=== PATIENT | female | born 1965 | race Caucasian/White ===

== ENCOUNTER 2018-06-06 14:42 | Day surgery (SDC) ==
[2018-06-06] MEDS ORDERED: ZOFRAN IV ONE (14:48)
[2018-06-06] MEDS ORDERED: MORPHINE IV ONE (14:48)
--- NOTE | 2018-06-06 15:12 | PROVIDER DOCUMENTATION ---
This chart was entered by Amber Barrera Scribe, acting as scribe for Yamila Felder CRNP. HPI-Musculoskeletal Pain/Inj - GENERAL Chief Complaint: Extremity Injury Stated Complaint: fall Time Seen by Provider: 06/06/18 14:47 Source: patient - HX OF PRESENT ILLNESS-MUSKULOSKELTAL Nature of Presenting Problem: 53 yof presents to the ed after stepping on a tool and twisting her left ankle. pt can not bear weight and has gross swelling of left ankle Quality of Pain: reports: aching Severity in ED: severe Onset/Duration: just prior to arrival Timing: still present, constant Modifying Factors: improves with: immobilization. worse with: movement, palpation Any recent injury?: Yes Locality of Occurance: Work Similar Symptoms Previously?: No Recently seen or treated by another doctor?: No Review of Systems - Adult - REVIEW OF SYSTEMS - ADULT Constitutional: denies: chills, fever Eyes: reports: no symptoms reported Ears, Nose, Mouth & Throat: reports: no symptoms reported Cardiovascular: denies: chest pain, palpitations Respiratory: denies: cough, shortness of breath, wheezing Gastrointestinal: denies: abdominal pain, diarrhea, nausea, vomiting Genitourinary: reports: no symptoms reported Musculoskeletal: reports: see HPI, joint pain (left ankle), joint swelling (left ankle). denies: back pain, neck pain Integumentary: reports: no symptoms reported Neurological: denies: dizziness/vertigo, headache/migraines Psychiatric: reports: no symptoms reported Endocrine: reports: no symptoms reported Hematologic/Lymphatic: reports: no symptoms reported Allergic/Immunologic: reports: no symptoms reported All Other Systems: Reviewed and Negative Past History - Adult - PAST MEDICAL HISTORY-ADULT Review of Records: reports: Old Records Reviewed, Nursing Assessment Review, Medications Reviewed, Social history reviewed & non-contributory. Major Childhood Illnesses: reports: denies history Cardiovascular: reports: denies history Respiratory: reports: denies history Gastrointestinal: reports: denies history Obstetrical/Gynecological: reports: denies history Genitourinary: reports: denies history Musculoskeletal: reports: denies history Neurological: reports: denies history Endocrine/Immune: reports: denies history Other Conditions: reports: denies history - PRIOR SURGERIES/PROCEDURES Surgical/Procedure History: reports: hysterectomy - IMMUNIZATION STATUS Childhood Immunizations: See Nurse Assessment Flu Vaccine: See Nurse Assessment - FAMILY HISTORY Family History: reviewed, not pertinent - SOCIAL HISTORY Smoking: non-smoker Substance Use: denies Living Situation: family Physical Exam-Injury Related - Physical Exam-Injury Related Initial Vital Signs Reviewed: Yes General Appearance: appears well, alert, no apparent distress Eyes: PERRL/EOMI, pink conjunctivae Head, Ears, Nose, Mouth & Throat: moist mucous membranes, normal ENT inspection Neck: non-tender, full range of motion, supple, normal inspection Respiratory: chest non-tender, lungs clear, normal breath sounds Cardiovascular: normal peripheral pulses, regular rate, rhythm Chest/Breast: deferred Abdominal Exam: normal bowel sounds, non tender, soft Female Genitalia/Pelvic Exam: deferred Rectal Exam: deferred Hemoccult Exam: deferred Lymphatic: no adenopathy Back Exam: normal inspection, no CVA tenderness, no vertebral tenderness Extremity: pelvis stable, deformity, swelling (left ankle), tenderness (left ankle) Integumentary: normal color, warm/dry, swelling (left ankle), tenderness (left ankle) Neurologic: grossly normal, no motor/sensory deficits Psych/Mental Status: normal mood/affect, normal thought content, normal thought process, oriented x 3 - Glascow Coma Score Best Eye Response ([place]): (4) open spontaneously Best Verbal Response ([place]): (5) oriented Best Motor Response ([place]): (6) obeys commands [place] Total: 15 Progress - PLAN OF CARE/RESULTS Progress/Plan/Lab Results: Vital Signs - 8 hr 06/06/18 14:54 06/06/18 15:42 06/06/18 15:50 Temperature 97.9 F Pulse Rate 89 Respiratory Rate 16 19 20 Blood Pressure 147/88 145/86 O2 Sat by Pulse Oximetry 91 L 93 L 100 06/06/18 16:00 06/06/18 16:02 06/06/18 16:10 Temperature Pulse Rate Respiratory Rate 21 19 31 H Blood Pressure 152/86 143/87 O2 Sat by Pulse Oximetry 100 100 100 06/06/18 16:11 Temperature Pulse Rate Respiratory Rate 15 Blood Pressure O2 Sat by Pulse Oximetry 100 Orders Category Date Time Status OCL Splint DIRECTED Care 06/06/18 15:29 Active ANKLE COMPLETE LEFT [RAD] Stat Exams 06/06/18 14:47 Completed ANKLE COMPLETE LEFT [RAD] Stat Exams 06/06/18 16:[address] EXT LOWER LEFT W/O CON [CT] Stat Exams 06/06/18 16:22 Ordered CBC WITH ELECTRONIC DIFF [HEME] Stat Lab 06/06/18 16:31 Uncollected COMPREHENSIVE METABOLIC PANEL [CHEM] Stat Lab 06/06/18 16:31 Uncollected 0.9% Sodium Chloride Inj [Ns] 1,000 ml Med 06/06/18 16:07 Active IV 999 mls/hr Hydromorphone [Dilaudid] Med 06/06/18 15:36 Discontinued 1 mg IV NOW ONE Lorazepam [Ativan] Med 06/06/18 15:36 Discontinued 1 mg IV NOW ONE Morphine Med 06/06/18 14:48 Discontinued 2 mg IV NOW ONE Ondansetron [Zofran] Med 06/06/18 14:48 Discontinued 4 mg IV NOW ONE EKG [EKG] Stat Ther 06/06/18 16:31 Ordered Discussed results and plan of care with patient. Patient agrees with plan and verbalizes understanding. - XRAY 1 XRAY: Left XRAY Study: Ankle Impression: See EMR Report (EXAM: ANKLE COMPLETE LEFT 06/06/2018 HISTORY: injury TECHNIQUE: Left ankle three views COMMENT: There are fractures of the distal shaft and more distal metaphyseal portion of the distal fibula, the medial malleolus and the posterior lip of the distal tibia. There is subluxation of the anterior portion of the plafond and anteriorly with respect to the talar dome. IMPRESSION: Fracture dislocation of the ankle as described. Electronically signed by Henri Eid 06/06/2018 3:09 PM 06/06/18 [id number] Interpreting Physician: Henri Eid MD Dictated Date/Time: 06/06/18 1507 cc: Yamila Felder; Paul Vasquez MD) XRAY Interpretation: See note 2 XRAY: Left XRAY Study: Ankle XRAY Interpretation: Dislocation reduced ([place]) - CONSULTS/PCP/HOSPITALIST Notification #1 *Consult/PCP/Hospitalist*: Dr. Scales Time Discussed: 15:23 Reason/Comments: Consult Consult Disposition: other (He will look at films and call back.) #2 Consult: Dr. Scales Time Discussed: 15:41 Reason/Comments: Consult Consult Disposition: Admit (Reduce and splint then get CT. Admit to Dr. Scales and make NPO after midnight.) Procedures - SPLINTING Left Lower Extremity Other Location: Left ankle Pre-Procedure Neurovascular Exam: Intact Splint Application (Hand-Made): Orthoglass, Posterior OCL Applied By: plasterer maintenance Assisted By: Mid-level Post Procedure Neurovascular Exam: Intact - DISLOCATION REDUCTION Left Ankle Other Location: left ankle Consent Form Signed?: Yes Time-Out Verification Completed?: Yes Pre-Procedure Neurovascular Exam: Intact Conscious Sedation: Yes (1 mg dilaudid and 1 mg ativan) Reduction Attempts: 1 Post Procedure Neurovascular Exam: Intact Post Reduction Film: Deformity Reduced, Fracture Present (Fracture was present before reduction) Post Reduction Splint Applied?: Yes Procedure Comment: Pt. tolerated procedure well Departure - Departure Date of Disposition Decision: 06/06/18 Time of Disposition Decision: 15:44 DIAGNOSIS: Ankle fracture, left Qualifiers: Encounter type: initial encounter Fracture type: closed Qualified Code(s): S82.892A - Other fracture of left lower leg, initial encounter for closed fracture Ankle dislocation Qualifiers: Encounter type: initial encounter Laterality: left Qualified Code(s): S93.05XA - Dislocation of left ankle joint, initial encounter Disposition: ADMITTED INPATIENT 09 Certified Medical Emergency: Emergent Condition: Stable Referrals and Follow-Ups: Paul Vasquez MD [Primary Care Provider] - - Critical Care Note This patient required my direct & personal management of CC.: No Attestation - Physician/ HILL Attestation Patient care was provided by Advanced Practice Provider:: Yes Advanced Practice Provider:: Yamila Felder Advanced Practice Provider documentation review:: The Mid-level provider documentation, treatment plan and medical decision making was reviewed by the physician who agrees with all treatment and medical decision making by the MLP. The physician spent face to face time with patient:: No Advanced Practice Provider documentation review:: Supervising physician onsite and consulted in the evaluation and care of this patient. The physician did not have a face to face encounter with the patient. This chart was documented by the indicated scribe, (Amber Barrera Scribe) and accurately reflects the services I performed and decisions made by me, Yamila Felder CRNP, as attested by the provider's signature.
[2018-06-06] MEDS ORDERED: DILAUDID IV ONE (15:36)
[2018-06-06] MEDS ORDERED: ATIVAN IV ONE (15:36)
[2018-06-06] MEDS ORDERED: NS 1,000 ML IV ONE ×2 (16:07→16:33)
--- NOTE | 2018-06-06 16:31 | Diag Imaging Result Doc PS360 ---
EXAM: ANKLE COMPLETE LEFT HISTORY: Post reduction TECHNIQUE: Left ankle two views COMPARISON: 3:00 PM FINDINGS: An external cast has been placed since the prior exam. There is improvement with satisfactory alignment to the distal tibia and fibula fractures. Electronically signed by Carlos Carlisle 06/06/2018 4:29 PM
[2018-06-06] MEDS ORDERED: ZOFRAN IV PRN (16:33)
[2018-06-06] MEDS ORDERED: PERCOCET-5 PO PRN ×2 (16:45→18:25)
--- NOTE | 2018-06-06 17:09 | ED EKG INTERP ---
This chart was entered by Amber Barrera Scribe, acting as scribe for Nadine Bourne MD. EKG Interpretation - EKG Time of EKG reading by physician:: 16:56 EKG Read and Signed by:: Nadine Bourne EKG Interpretation (*Must complete 3 of following elements*): Normal Rate: 91 Rhythm: nsr [place]: normal QRS: normal CO Interval: normal ST Wave: normal Attestation - Physician/ HILL Attestation Patient care was provided by Advanced Practice Provider:: Yes Advanced Practice Provider documentation review:: The Mid-level provider documentation, treatment plan and medical decision making was reviewed by the physician who agrees with all treatment and medical decision making by the MLP. The physician spent face to face time with patient:: No Advanced Practice Provider documentation review:: Supervising physician onsite and consulted in the evaluation and care of this patient. The physician did not have a face to face encounter with the patient. This chart was documented by the indicated scribe, (Amber Barrera Scribe) and accurately reflects the services I performed and decisions made by Steffen dillon Carisa L., MD, as attested by the provider's signature.
[2018-06-06 17:12] LABS: BASO# 0.01 X1000 (0.0-0.2); BASO% 0.1 % (0.0-0.8); EOS# 0.01 X1000 (0.0-0.7); EOS% 0.1 % (0.0-10.0); HEMATOCRIT 37.9 % (37.0-47.0); HEMOGLOBIN 12.2 g/dL (12.0-16.0); LYMPH# 1.22 X1000 (1.2-3.4); LYMPH% 11.2 % (20.5-51.1); MCH 30.5 PG (27-31); MCHC 32.2 g/dL (33-37); MCV 94.8 FL (81-99); MONO# 0.46 X1000 (0.11-0.59); MONO% 4.2 % (1.7-9.3); MPV 10.2 FL (7.4-10.4); NEUT# 9.19 X1000 (1.4-6.5); NEUT% 84.4 % (42.2-75.2); PLT 290 X1000 (130-400); RDW 11.6 % (11.5-14.5); WBC 10.89 X1000 (4.8-10.8)
--- NOTE | 2018-06-06 17:26 | Diag Imaging Result Doc PS360 ---
EXAM: CT EXT LOWER LEFT W/O CON 06/06/2018 HISTORY: Fx TECHNIQUE: This exam was performed using automated exposure control, adjustment of mA or kV according to patient size, and/or use of iterative reconstruction technique. COMMENT: There is a comminuted fracture of the distal fibula. There is a comminuted fracture of the distal tibia involving the medial malleolus as well as the posterior and central portion of the plafond. The talus and calcaneus appear to be intact as do the other visible tarsal bones. The ankle mortise is better aligned than it was at the time of the plain radiographs at 1501. IMPRESSION: Comminuted fractures of distal tibia and fibula. Electronically signed by Henri Eid 06/06/2018 5:24 PM
[2018-06-06 17:43] LABS: AGAP 13; ALB/GLOB RATIO 1.1; ALBUMIN 3.7 g/dL (3.5-5.0); ALKALINE PHOSPHATASE 95 U/L (32-104); BUN 12 mg/dL (8-22); CALCIUM 8.1 mg/dL (8.8-10.2); CHLORIDE 101 mmol/L (98-107); COSMO 280; CREATININE 0.7 mg/dL (0.5-0.9); ESTIMATED GFR > 60; GLUCOSE 109 mg/dL (70-104); GOT 20 U/L (10-30); GPT 11 U/L (10-36); POTASSIUM 3.9 mmol/L (3.5-5.1); SODIUM 140 mmol/L (136-145); TCO2 26 mmol/L (25-35); TOTAL BILIRUBIN < 0.15 mg/dL (0.20-1.00)
[2018-06-06] MEDS: MORPHINE IV PRN ×2 (18:37→21:51)
[2018-06-07] MEDS ORDERED: MORPHINE IV PRN
[2018-06-07] MEDS: MORPHINE IV PRN ×4 (01:02→13:02)
[2018-06-07] MEDS ORDERED: ROBINUL ONE (07:27)
[2018-06-07] MEDS ORDERED: XYLOCAINE-MPF 2% ONE (07:27)
[2018-06-07] MEDS ORDERED: FENTANYL ONE (07:28)
[2018-06-07] MEDS ORDERED: DIPRIVAN 1% ONE (07:29)
--- NOTE | 2018-06-07 07:48 | HISTORY AND PHYSICAL ---
HISTORY OF PRESENT ILLNESS: Ms Ulloa is a 53-year-old female who presented to the emergency department on 06/06/2018 for evaluation of this left ankle injury. She was stepping over some wood and then stepped on like a screwdriver and it shot her foot out from under her and she ended up landing and twisting the foot. She could not bear any weight so she came into the ER. They did x-rays, showed ankle fracture subluxation. She reduced in the ER, and then she was admitted to [facility] for surgical fixation today. Most of her pain is in the ankle. It is worse with any movement and it does feel better after the splint had been put on. PAST MEDICAL HISTORY: She denies any heart problems or lung problems PAST SURGICAL HISTORY: Hysterectomy. SOCIAL HISTORY: She denies any smoking. She lives with her . ALLERGIES: No known drug allergies. MEDICATIONS: Per the medical record. REVIEW OF SYSTEMS: Positive for this left ankle pain. All other systems are essentially negative. PHYSICAL EXAMINATION: GENERAL: A well-developed, well nourished female. She is in no acute distress. HEAD AND NECK: Normocephalic, atraumatic. RESPIRATIONS: Nonlabored breathing. CARDIOVASCULAR: Regular pulse. Abdomen: Nondistended. Extremities: Left lower extremity exam, she can move her toes in dorsiflexion, plantar flexion. She has good sensation to light touch to the toes and good capillary refill to the toes. Splint is clean, dry, and intact. She does not have any tender to palpation at the knee. RADIOGRAPHS: Initial radiographs were reviewed which shows a left what looks like tibial pilon variant with a lateral malleolus fracture with subluxation. Postreduction films show better alignment. CT scan shows a distal fibula fracture that is comminuted and a distal tibia fracture and medial malleolus fracture. ASSESSMENT: 1. Left tibial pilon fracture. 2. eft distal fibula fracture. PLAN: I discussed with Ms. Ulloa today about surgical intervention. I went over with her the procedure, risks, benefits, and potential complications. Risks include, but are not limited to infection, wound healing problems, damage to nerves, arteries, veins, numbness, malunion, nonunion, hardware related issues, continued pain, DVT, and anesthesia related risks. After discussing these with the patient, she expressed understanding wished to proceed. This will be a left tibial pilon open reduction and internal fixation and lateral malleolus open reduction and internal fixation with possible syndesmosis fixation. She is n.p.o. now. We will plan on doing this today. She will be nonweightbearing afterwards. cc: Jm Scales MD
[2018-06-07] MEDS ORDERED: XYLOCAINE 1% ONE (07:55)
[2018-06-07] MEDS ORDERED: MARCAINE 0.25% PF ONE (07:55)
[2018-06-07] MEDS ORDERED: PEPCID ONE (07:56)
[2018-06-07] MEDS ORDERED: KEFZOL 2 GM/D5W 4 GM/100 ML IVPB ONE (08:06)
[2018-06-07] MEDS ORDERED: REGLAN ONE (08:20)
[2018-06-07] MEDS ORDERED: DECADRON ONE (08:20)
[2018-06-07] MEDS ORDERED: PHENERGAN ONE (08:31)
[2018-06-07] MEDS ORDERED: MORPHINE ONE (08:45)
[2018-06-07] MEDS ORDERED: SODIUM CHLORIDE 0.9% 10 ML ONE (08:45)
[2018-06-07] MEDS ORDERED: ZOFRAN ONE (08:57)
[2018-06-07 12:36] VITALS: BP 145/71
--- NOTE | 2018-06-07 13:28 | OPERATIVE NOTE ---
PROCEDURE DATE: 06/07/2018 PREOPERATIVE DIAGNOSES: 1. Right medial malleolus fracture. 2. Right lateral malleolus fracture, comminuted. 3. Right tibial pilon fracture. POSTOPERATIVE DIAGNOSES: 1. Right medial malleolus fracture. 2. Right lateral malleolus fracture, comminuted. 3. Right tibial pilon fracture. PROCEDURES: 1. Right open reduction internal fixation lateral malleolus. 2. Right open reduction internal fixation medial malleolus. 3. Right open reduction internal fixation tibial pilon fracture. SURGEON: Dr. Jm Scales. FOOD SERVICE ASSOCIATE: None. ANESTHESIA: General with LMA. TOURNIQUET TIME: 130 minutes. IMPLANTS: 1. Midline distal fibular plate locking plate and screws. 2. Midline 1/3 tubular plate and screws. 3. Biomet 4 cannulated screws x4. DISPOSITION: To PACU, hemodynamically stable. INDICATIONS FOR PROCEDURE: Ms. Ulloa is a 53-year-old female who fractured her ankle yesterday. She was admitted to the hospital for surgery today. I discussed with her and her family about operative intervention. She expressed understanding and wished to proceed. DESCRIPTION OF PROCEDURE: Ms. Ulloa was identified in the preoperative holding area. The right foot was marked as correct surgical site. She was then wheeled to the operating room, placed supine on the operating table. All bony prominences well padded. She was induced under general anesthesia. LMA was placed. Tourniquet placed to the right thigh. Right lower extremity then prepped chlorhexidine, gluconate scrub and then ChloraPrep, and draped in normal sterile fashion. Surgical pause was performed. We identified the correct patient, correct side, and the correct procedure. Preop antibiotics were given. Esmarch was used to exsanguinate the right lower extremity and tourniquet was inflated to 300 mmHg. Total tourniquet time was 130 minutes. I started with an incision over the distal fibula. Dissection was carried down. We identified superficial peroneal nerve and protected it throughout the entire case. The fibula was really comminuted. The shaft portion was splintered where it started and there was really almost a big butterfly fragment anteriorly. In the distal fragment, the more anterior aspect was comminuted about the anterior syndesmosis. Her bone quality was not great for using even a bony reduction clamp. Given the amount of comminution, I felt like we could not get a lag screw in so I ended up pulling her fibula out to length. I used a bony reduction clamp on the distal fibular fragment and then pinned that piece to the talus. That actually got my length back. I was then able to get a distal fibular locking plate on, secured it right above the proximal fracture line and then I came down and secured it to the distal fragment with some locking and nonlocking screws. That actually got our length back. I then put 3 more screws proximally to hold everything together and then I put 1 screw right in the middle to grab that butterfly fragment and pull it in and it actually pulled in really well. Fluoroscopic imaging showed it looked like we got our fibular length back. That actually looked really good. I then used some 0 Vicryl in that anterior comminuted portion at the syndesmosis. It was very thin so I ended using 0 Vicryl to reduce it back down and put some drill holes in the distal fragment piece so I could pass my suture through it and tied that anterior piece down and actually came back together really well also. I then closed the deep layer with 0 Vicryl, 2-0 Vicryl for the subcutaneous and nylon on the skin. We then removed the hip bump on ipsilateral leg, externally rotated her leg and put a bump under the contralateral hip. I then made a posterior medial incision and dissection was carried down. I went through the interval between the posterior tibial tendon and the FDL and came right down onto the fracture site. You could see that fracture site fairly well. We took care to protect our neurovascular bundle underneath that FDL tendon the entire case. I was able to reduce the posterior fractures using a dental pick and then I put 2 guidewires for the 4-0 cannulated screws in. Fluoroscopic imaging showed we had a really good joint reduction. I then put those cannulated screws in and got compression across the joint on that tibial pilon piece. I then used a buttress plate and secured it proximally right above the fracture to really buttress that whole piece in and get a little bit more compression evenly throughout these posterior fragments. I felt we had really good fixation there. Through the same incision, I was able to address the medial malleolus. The medial malleolus had a transverse fracture but also a coronal plane fracture as well. I was able to reduce more the anterior fragment. I put a cannulated screw in it and then I reduced that posterior fragment as well and put a screw in it. Final images were taken which showed we had really good joint reduction. All the rest of the fracture fragments looked well reduced as well. All the bony hardware looked to be in good position. I then closed the medial side in layered fashion, 0 Vicryl for the deep layer, 2-0 Vicryl for the subcutaneous and nylon on the skin. Adaptic, 4x4s, ABD, soft roll, posterior splint was applied. Tourniquet was let down. Patient had good capillary refill return to the toes. She was then awoken from general anesthesia, moved to her own bed and taken to PACU in stable condition. Postop, she will be nonweightbearing right lower extremity. She will be discharged later today. I will see her in a week in clinic. cc: Jm Scales MD
--- NOTE | 2018-06-07 15:46 | DISCHARGE SUMMARY ---
ADMISSION DATE: 06/06/2018 DISCHARGE DATE: 06/07/2018 PRIMARY PROCEDURE: Open reduction, internal fixation, left ankle. DISCHARGE MEDICATIONS: Percocet, Ecotrin and Zofran. HOSPITAL COURSE: Ms. Ulloa was admitted to the hospital on 06/06/2018 for this left ankle fracture. She was made n.p.o. after midnight. We took her to the OR on 06/07/2018 and performed open reduction, internal fixation of her left ankle. She did well postoperatively and is being discharged 06/07/2018. She will follow up with me in 1 week in the clinic. She is nonweightbearing, left lower extremity. She is going to elevate throughout the week to keep her swelling down. cc: Jm Scales MD
--- NOTE | 2018-06-09 07:02 | EKG Report ---
Test Performed on : 06/06/2018 4:56:08 PM Test Reason : admit Blood Pressure : / mmHG Vent. Rate : 091 BPM Atrial Rate : 091 BPM P-R Int : 150 ms QRS Dur : 078 ms QT Int : 382 ms P-R-T Axes : 050 049 030 degrees QTc Int : 469 ms Normal sinus rhythm. Normal ECG No previous ECGs available Unconfirmed Result
== END 2018-06-07 14:10 | disposition home or self-care (01) ==
LOC: SUPCPDRO → DIRADM 14:42 → ED 14:42 → OPS 14:43 → 4N 14:43 → INTOOBSV 14:43 → OPS 06-07 14:10
PROVIDERS: ATTEND Internal Medicine
CPT/HCPCS: 73610; 73700; 76000; 80053; 85025; 93005; 96374; 96375; 99285; A9270; C1713; J0690; J1100; J1170; J2060; J2270; J2405; J2550; J2765; J3010; J7030; S0020; S0028